=== PATIENT | male | born 1935 | race Caucasian/White ===

== ENCOUNTER 2016-05-06 17:04 | Emergency (ER) | payer MEDICARE, BC ==
[2016-05-06] MEDS ORDERED: METOCLOPRAMIDE HCL 5 MG/ML VIAL IV ONE (17:42)
[2016-05-06] MEDS ORDERED: NORMAL SALINE 1,000 ML IV ONE (17:42)
--- NOTE | 2016-05-06 17:54 | ERNOTE ---
Medical Problem HPI - Narrative Date of Service: 05/06/16 - General Chief Complaint: General Assessment Time Seen by Provider: 05/06/16 17:21 Source: patient, family, RN notes reviewed Exam Limitations: other - poor historian - Immun/Allergies/Home Medications Immunizations: IMMUNIZATION HX Immunizations Up to Date Yes History of Influenza Vaccine No Hx Pneumococcal Vaccination No Home Medications: HOME MEDICATIONS Ondansetron [Zofran Odt] 8 mg PO Q8H PRN #12 tab 05/06/16 [Last Taken Unknown] - History of Present History Narrative: 80 y/o male brought to the ED by his son for "acid reflux." The son reports that the symptoms began the night before last with the patient being unable to tolerate any oral intake. The patient is continually spitting into a container. He denies any pain. He reports that he had diarrhea a few days ago, but saw his doctor and was given some "little green pills" that stopped it. He reports also being on an antibiotic for "chest congestion." He saw his doctor again today and was given "a shot for the spitting" and an oral medication for acid reflux. His doctor told the son to bring him to the ED if he is unable to tolerate the oral meds. Other family members have had vomiting and diarrhea. Review of Systems - Review of Systems Constitutional: Present: malaise. Absent: fever, chills EYE: Present: no symptoms reported ENT: Absent: sore throat, other - trouble swallowing Respiratory: Present: cough. Absent: shortness of breath, stridor Cardiology: Absent: chest pain, palpitations Gastrointestinal/Abdominal: Present: nausea, eating less, drinking less. Absent : abdominal pain Genitourinary: Present: no symptoms reported Musculoskeletal: Present: no symptoms reported Skin: Present: no symptoms reported Neurological: Absent: dizziness/light-headedness, weakness Endocrine: Present: no symptoms reported Hematologic/Lymphatic: Present: no symptoms reported Psych: Present: no symptoms reported - Patient's Past Medical History Patient History - Medical: Diabetes Type 2, GERD Patient History - Cardiac/Respiratory: Hypertension Patient History - Cancer: Prostate Patient History - Surgical Procedures: Cholecystectomy Patient History - Other: None - Social History Living Situations: home Abuse History: No History of abuse Psych History: No pertinent hx Smoking Status: Never smoker Alcohol Use: rarely Drug Use: none - Immunizations Immunizations Up to Date: Yes Hx Pneumococcal Vaccination: No History of Influenza Vaccine: No Physical Exam - Physical Exam General Appearance: Present: wd/wn, alert, no apparent distress, other - frequently spits into emesis bag - just saliva, no bile or food Ears, Nose, Throat: Present: hearing decreased Respiratory: Present: no respiratory distress, no accessory muscle use, lungs clear, decreased breath sounds Cardiovascular/Chest: Present: no murmur, normal peripheral pulses, irregularly irregular Gastrointestinal/Abdominal: Present: nontender, soft, abnormal bowel sounds - hypoactive, distended Extremity Exam: Present: normal inspection, no edema Neurological Exam: Present: alert, oriented, normal mood/affect, no motor/ sensory deficits Skin Exam: Present: normal color, warm/dry ED Progress - Results and Orders Patient's Lab Results:: I have reviewed the patient's lab results. - Vital Signs Patient's Vital Signs:: I have reviewed the patient's vital signs. Vital Signs: Vital Signs 05/06/16 17:08 Temperature 36.4 C L Pulse Rate 85 Respiratory 16 Rate Blood Pressure 125/100 O2 Sat by Pulse 96 Oximetry - X-Ray X-Ray #1 X-Ray: chest Interpretation: Reviewed by me X-ray Comments: No acute cardiopulmonary process present - numerous sclerotic bone lesions present X-Ray #2 X-Ray: abdomen Interpretation: Reviewed by me X-ray Comments: No acute abdominal process noted, numerous sclerotic bone lesions present - Progress/Reassessment Chief Complaint: General Assessment Progress:: Improved Progress Note-Subjective: Spitting/vomiting resolved with Reglan. Patient verbalizes feeling a lot better after IVF, tolerating small amounts of water. Discussed lab results and xrays - patient has history of prostate cancer that could be the source of the numerous sclerotic bone lesions seen. He stopped treatment for this some time ago. Departure - Departure Clinical Impression: Vomiting Qualifiers: Vomiting type: unspecified Vomiting Intractability: non-intractable Nausea presence: with nausea Qualified Code(s): R11.2 - Nausea with vomiting, unspecified Disposition: Home Follow Up Needed Condition: Stable Instructions: Viral Gastroenteritis, Adult, [id number] Additional Instructions: Continue your protonix You do not need to take the antibiotic (ciprofloxacin) Stop the pills for diarrhea Return if symptoms worsen Prescriptions: Ondansetron [Zofran Odt] 8 mg PO Q8H PRN #12 tab PRN Reason: Nausea
[2016-05-06] MEDS ORDERED: METOCLOPRAMIDE HCL 5 MG/ML VIAL ONE (18:05)
[2016-05-06 18:21] LABS: Hematocrit 45.9 % (42.0-52.0); Hemoglobin 15.7 gm/dL (13.5-18.0); Mean Cell Volume 84.5 fl (78-100); Mean Corpuscular Hemoglobin 28.9 pg (27-31); Mean Corpuscular Hgb Conc 34.2 g/dl (32-36); Mean Platelet Volume 10.2 fl (6.0-9.5); Neutrophil # 7.1 K/mm3 (1.3-6.0); Neutrophil % 84.5 % (42-75.0); Platelet Count 245 K/mm3 (150-450); Red Blood Count 5.43 M/mm3 (4.7-6.0); Red Cell Distribution Width 12.8 % (11.5-14.0); White Blood Count 8.4 K/mm3 (4.0-10.5)
[2016-05-06 18:36] LABS: Albumin * 4.2 gm/dl (3.4-5.0); Anion Gap 13.9 mmol/L (6.8-13.8); BUN/Creatinine Ratio 12.7 (9.0-21.6); Bilirubin, Total 2.6 mg/dL (0.0-1.1); Calcium * 9.5 mg/dL (7.9-10.9); Carbon Dioxide 25.6 mmol/L (24-32.6); Potassium 4.5 mmol/L (3.4-4.6); Total Protein 7.9 gm/dL (6.2-8.2)
[2016-05-06 19:49] VITALS: BP 151/83
== END 2016-05-06 19:53 | disposition home or self-care (01) ==
LOC: ER 17:04
DX: R11.2 Nausea with vomiting, unspecified (principal); Z85.46 Personal history of malignant neoplasm of prostate

== ENCOUNTER 2017-04-09 15:30 | Emergency (ER) | payer MEDICARE, BC ==
[2017-04-09 17:06] LABS: Hematocrit 42.6 % (42.0-52.0); Hemoglobin 14.7 gm/dL (13.5-18.0); Mean Cell Volume 84.2 fl (78-100); Mean Corpuscular Hemoglobin 29.1 pg (27-31); Mean Corpuscular Hgb Conc 34.5 g/dl (32-36); Mean Platelet Volume 9.8 fl (6.0-9.5); Neutrophil # 14.3 K/mm3 (1.3-6.0); Platelet Count 231 K/mm3 (150-450); Red Blood Count 5.06 M/mm3 (4.7-6.0); Red Cell Distribution Width 12.6 % (11.5-14.0)
[2017-04-09] MEDS ORDERED: ONDANSETRON HCL/PF 2 MG/ML VIAL ONE (17:14)
[2017-04-09] MEDS: NORMAL SALINE 1,000 ML IV ONE ×2 (17:20→18:59)
[2017-04-09] MEDS: ONDANSETRON HCL/PF 2 MG/ML VIAL IV ONE (17:20)
[2017-04-09 17:23] LABS: Albumin * 3.6 gm/dl (3.4-5.0); Anion Gap 13.5 mmol/L (6.8-13.8); BUN/Creatinine Ratio 11.8 (9.0-21.6); Bilirubin, Total 3.2 mg/dL (0.0-1.1); Carbon Dioxide 27.2 mmol/L (24-32.6); Magnesium 1.3 mg/dL (1.2-2.8); Potassium 4.7 mmol/L (3.4-4.6); Total Protein 7.3 gm/dL (6.2-8.2)
--- NOTE | 2017-04-09 19:23 | ERNOTE ---
<Rock Wagner - Last Filed: 04/09/17 19:52> Medical Problem HPI - General Chief Complaint: General Assessment Time Seen by Provider: 04/09/17 16:03 Source: patient, family Exam Limitations: no limitations - Immun/Allergies/Home Medications Immunizations: IMMUNIZATION HX Immunizations Up to Date Yes History of Influenza Vaccine No Hx Pneumococcal Vaccination No Allergies/Adverse Reactions: Allergies No Known Allergies Allergy (Verified 04/09/17 15:59) Home Medications: HOME MEDICATIONS Ondansetron [Zofran Odt] 8 mg PO Q8H PRN #12 tab 05/06/16 [Last Taken Unknown] Aspirin 81 mg PO DAILY 03/31/17 [Last Taken Unknown] Benazepril HCl [Lotensin] 40 mg PO DAILY 03/31/17 [Last Taken Unknown] Cholecalciferol (Vitamin D3) [Vitamin D3] 2,000 unit PO DAILY 03/31/17 [Last Taken Unknown] L.acidoph,Paracasei, B.lactis [Probiotic] 1 each PO DAILY 03/31/17 [Last Taken Unknown] Pantoprazole Sodium 40 mg PO DAILY 03/31/17 [Last Taken Unknown] metFORMIN HCL [Metformin HCl] 1,000 mg PO BID 03/31/17 [Last Taken Unknown] Acetaminophen [Tylenol] 650 mg PO Q6H PRN tablet 04/01/17 [Last Taken Unknown] - History of Present History Narrative: Patient arrived today and states that he feels like he is dehydrated again. He believes given his underlying metastatic prostate cancer that he is no longer hungry or thirsty. Other than the chronic pain from the bone metastases patient denies any new pain or discomfort. Denies any chest pain cough shortness of breath or burning on urination. Timing: getting worse Severity: moderate Review of Systems - Review of Systems Constitutional: Present: See HPI, weakness EYE: Present: no symptoms reported ENT: Present: no symptoms reported Respiratory: Present: no symptoms reported Cardiology: Present: no symptoms reported Gastrointestinal/Abdominal: Present: no symptoms reported Genitourinary: Present: no symptoms reported Musculoskeletal: Present: back pain - chronic back pain from his metastatic cancer, other Skin: Present: no symptoms reported Neurological: Present: no symptoms reported Endocrine: Present: no symptoms reported Hematologic/Lymphatic: Present: no symptoms reported Psych: Present: no symptoms reported - Patient's Past Medical History Patient History - Medical: Diabetes Type 2, GERD Patient History - Cardiac/Respiratory: Hypertension 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 Patient History - Surgical Procedures: Cholecystectomy Patient History - Other: None - Family History Father Family History - Medical: , No pertinent hx Mother Family History - Medical: , No pertinent hx - Social History Living Situations: home Abuse History: No History of abuse Psych History: No pertinent hx Smoking Status: Never smoker Alcohol Use: rarely Drug Use: none - Immunizations Immunizations Up to Date: Yes Hx Pneumococcal Vaccination: No History of Influenza Vaccine: No Physical Exam - Physical Exam General Appearance: Present: wd/wn, alert, moderate distress Head Exam: Present: normal inspection, no evidence of injury Eye Exam: Normal inspection: bilateral, PERRL: bilateral Ears, Nose, Throat: Present: normal pharynx, dry mucous membranes Neck: Present: normal inspection, nontender Respiratory: Present: no respiratory distress, normal breath sounds, no accessory muscle use, chest nontender, lungs clear Cardiovascular/Chest: Present: regular rate, rhythm, no murmur, normal peripheral pulses Gastrointestinal/Abdominal: Present: normal bowel sounds, nontender, nondistended, soft, no organomegaly Rectal Exam: Present: deferred Back Exam: Present: normal inspection, normal range of motion Extremity Exam: Present: normal inspection, non-tender, no edema, normal range of motion Neurological Exam: Present: alert, oriented, normal mood/affect Skin Exam: Present: normal color, warm/dry Lymphatic Exam: Present: no adenopathy ED Progress - Results and Orders Patient's Lab Results:: I have reviewed the patient's lab results. - Vital Signs Patient's Vital Signs:: I have reviewed the patient's vital signs. Vital Signs: Vital Signs 04/09/17 04/09/17 04/09/17 15:46 16:50 18:00 Temperature 36.4 C L 36.5 C 36.6 C Pulse Rate 78 78 78 Respiratory 22 H 20 20 Rate Blood Pressure 99/63 105/69 110/65 O2 Sat by Pulse 95 95 95 Oximetry 04/09/17 18:40 Temperature 36.6 C Pulse Rate 74 Respiratory 18 Rate Blood Pressure 106/63 O2 Sat by Pulse 95 Oximetry - X-Ray X-Ray #1 X-Ray: chest Interpretation: Reviewed by me - Progress/Reassessment Chief Complaint: General Assessment - Transfer of Care Physician Sign Out: Rock Wagner Receiving Physician: Christie Ronquillo Expected Disposition: Discharge Departure Clinical Impression: Dehydration, moderate - Departure Disposition: Home self-care Condition: Good Instructions: Dehydration, Adult, [id number] Additional Instructions: call your doctor for follow up after the weekend, try fiber and probiotics for your chronic diarrhea, try to make yourself drink more water, especially if you have diarrhea two quarts would be a good goal Referrals: Danny Potter DO [Primary Care Provider] - <Christie Ronquillo - Last Filed: 04/09/17 21:06> Medical Problem HPI - Immun/Allergies/Home Medications Immunizations: IMMUNIZATION HX Immunizations Up to Date Yes History of Influenza Vaccine No Hx Pneumococcal Vaccination No Physical Exam - Physical Exam General Appearance: Present: wd/wn, alert Respiratory: Present: no respiratory distress Neurological Exam: Present: alert, oriented, normal mood/affect Skin Exam: Present: normal color, warm/dry ED Progress - Results and Orders Patient's Lab Results:: I have reviewed the patient's lab results. - Vital Signs Patient's Vital Signs:: I have reviewed the patient's vital signs. Vital Signs: Vital Signs 04/09/17 04/09/17 04/09/17 15:46 16:50 18:00 Temperature 36.4 C L 36.5 C 36.6 C Pulse Rate 78 78 78 Respiratory 22 H 20 20 Rate Blood Pressure 99/63 105/69 110/65 O2 Sat by Pulse 95 95 95 Oximetry 04/09/17 04/09/17 04/09/17 18:40 19:20 19:52 Temperature 36.6 C 36.5 C 36.5 C Pulse Rate 74 73 82 Respiratory 18 18 18 Rate Blood Pressure 106/63 119/67 109/55 O2 Sat by Pulse 95 95 95 Oximetry 04/09/17 20:28 Temperature 36.5 C Pulse Rate 76 Respiratory 18 Rate Blood Pressure 111/63 O2 Sat by Pulse 95 Oximetry - Progress/Reassessment Progress Note-Subjective: 04/09/17 20:53 patient feeling much better after IV fluids, wants to go home he has metastatic prostate cancer, which he has had for 10 years, history of radiation, currently he is getting injections every three months, his dental front office assistant is in [place], he was admitted here for one night last week, he did not qualify for home health as he is still driving, He has had diarrhea for at least 4-5 years, not sure what kind of test he had done, or what is causing it, Discussed need to follow up with his PCP, he might qualify for hospice
[2017-04-09 20:00] LABS: Urine Bilirubin Negative (NEGATIVE); Urine Blood 250 /ul (NEGATIVE); Urine Ketone Negative (NEGATIVE); Urine Nitrite Negative (NEGATIVE); Urine Protein 30 mg/dL (NEGATIVE); Urine Specific Gravity 1.015 SP.GR. (1.005-1.030); Urine Urobilinogen Normal (NORMAL)
[2017-04-09 20:19] LABS: Urine Amorphous Sediment TRACE (NONE-FEW); Urine Appearance Clear; Urine Bacteria 1+; Urine Color Orange; Urine Fine Granular Cast 0-5 /LPF; Urine Mucus Few - 1+; Urine RBC 0-5 /hpf (0-5); Urine WBC None Seen /hpf (0-5)
[2017-04-09 20:29] VITALS: BP 111/63
== END 2017-04-09 21:07 | disposition home or self-care (01) ==
LOC: ER 15:30
DX: I10 Essential (primary) hypertension; E86.0 Dehydration; Z85.46 Personal history of malignant neoplasm of prostate
CPT/HCPCS: 36415; 71046; 80053; 81001; 83605; 83735; 85025; 87040; 96361; 96374; 99284; J2405